=== PATIENT | male | born 1975 | race Hispanic/Latino ===

== ENCOUNTER 2017-10-31 20:37 | Emergency (ER) | payer BC, OTHER ==
--- NOTE | 2017-10-31 21:08 | EDPHYS ---
Physician Documentation [facility] Name: Joel Negron Jr Age: 42 yrs Sex: Male : 1975 Arrival Date: 10/31/2017 Time: 20:38 Bed 16 Private MD: ED Physician Suresh Garces HPI: 10/31 20:52 This 42 yrs old Male presents to ER via Ambulatory with complaints of BROKE jr8 FINGER. 20:52 The patient or guardian reports decreased range of motion, deformity, pain. The jr8 complaints affect the PIP of left ring finger. Context: The problem was sustained at work, resulted from a fall. Onset: The symptoms/episode began/occurred acutely, today. Modifying factors: The symptoms are alleviated by nothing, the symptoms are aggravated by movement. Associated signs and symptoms: The patient has no apparent associated signs or symptoms. Severity of symptoms: At their worst the symptoms were moderate, in the emergency department the symptoms are unchanged. The patient has not experienced similar symptoms in the past. The patient has not recently seen a physician. Historical: - Allergies: 20:43 No Known Allergies; tc3 - Home Meds: 20:43 tramadol 50 mg Oral tab 1 tab as needed [Active]; Nexium 20 mg Oral cpDR 1 cap once tc3 daily [Active]; - PMHx: 20:43 GERD; tc3 - PSHx: 20:43 None; tc3 - Immunization history:: Last tetanus immunization: unknown. - Social history:: Smoking status: Patient uses tobacco products, smokes one pack cigarettes per day. ROS: 20:52 Eyes: Negative for injury, pain, redness, and discharge, ENT: Negative for injury, jr8 pain, and discharge, Neck: Negative for injury, pain, and swelling, Cardiovascular: Negative for chest pain, palpitations, and edema, Respiratory: Negative for shortness of breath, cough, wheezing, and pleuritic chest pain, Abdomen/GI: Negative for abdominal pain, nausea, vomiting, diarrhea, and constipation, Back: Negative for injury and pain, Skin: Negative for injury, rash, and discoloration, Neuro: Negative for headache, weakness, numbness, tingling, and seizure. 20:52 MS/extremity: Positive for decreased range of motion, deformity, pain, of the PIP of left ring finger. Exam: 20:52 Eyes: Pupils equal round and reactive to light, extra-ocular motions intact. Lids and jr8 lashes normal. Conjunctiva and sclera are non-icteric and not injected. Cornea within normal limits. Periorbital areas with no swelling, redness, or edema. ENT: Nares patent. No nasal discharge, no septal abnormalities noted. Tympanic membranes are normal and external auditory canals are clear. Oropharynx with no redness, swelling, or masses, exudates, or evidence of obstruction, uvula midline. Mucous membranes moist. Neck: Trachea midline, no thyromegaly or masses palpated, and no cervical lymphadenopathy. Supple, full range of motion without nuchal rigidity, or vertebral point tenderness. No Meningismus. Cardiovascular: Regular rate and rhythm with a normal S1 and S2. No gallops, murmurs, or rubs. Normal PMI, no JVD. No pulse deficits. Respiratory: Lungs have equal breath sounds bilaterally, clear to auscultation and percussion. No rales, rhonchi or wheezes noted. No increased work of breathing, no retractions or nasal flaring. Abdomen/GI: Soft, non-tender, with normal bowel sounds. No distension or tympany. No guarding or rebound. No evidence of tenderness throughout. Back: No spinal tenderness. No costovertebral tenderness. Full range of motion. Skin: Warm, dry with normal turgor. Normal color with no rashes, no lesions, and no evidence of cellulitis. Neuro: Awake and alert, GCS 15, oriented to person, place, time, and situation. Cranial nerves II-XII grossly intact. Motor strength 5/5 in all extremities. Sensory grossly intact. Cerebellar exam normal. Normal gait. 20:52 Musculoskeletal/extremity: Extremities: grossly normal except: noted in the PIP of left ring finger: decreased ROM, deformity, pain, Circulation is intact in all extremities. Sensation intact. Vital Signs: 20:45 BP 125 / 88; Pulse 78; Resp 20; Temp 98.4(O); Pulse Ox 95% on R/A; Weight 94.35 kg; tc3 Height 5 ft. 5 in. (165.10 cm); Pain 9/10; 20:45 Body Mass Index 34.61 (94.35 kg, 165.10 cm) tc3 Procedures: 20:52 Reduction: of the PIP of left ring finger, using traction, manipulation, Patient jr8 tolerated well. Post reduction film - reveals normal alignment. MDM: 20:48 Patient medically screened. jr8 21:06 Data reviewed: vital signs, nurses notes, radiologic studies, plain films, and as a jr8 result, I will discharge patient. Data interpreted: Pulse oximetry: on room air is 95 %. Interpretation: normal. Counseling: I had a detailed discussion with the patient and/or guardian regarding: the historical points, exam findings, and any diagnostic results supporting the discharge/admit diagnosis, radiology results, the need for outpatient follow up, a orthopedic surgeon, to return to the emergency department if symptoms worsen or persist or if there are any questions or concerns that arise at home. 10/31 20:52 Order name: XRAY Hand LEFT 2 View; Complete Time: 22:18 jr8 10/31 21:06 Order name: Finger Splint; Complete Time: 21:25 jr8 Administered Medications: No medications were administered Disposition: 11/01 00:59 I agree with the assessment and plan of care. tw4 Disposition: 10/31/17 21:08 Discharged to Home. Impression: Dislocation of proximal interphalangeal joint of left ring finger. - Condition is Stable. - Discharge Instructions: Finger Dislocation. - Medication Reconciliation Form, Thank You Letter, Antibiotic Education, Presription Opioid Use form. - Follow up: Dylan Rangel MD; When: 1 week; Reason: Recheck today's complaints, Continuance of care, Re-evaluation by your physician. - Problem is new. - Symptoms have improved. Signatures: Dispatcher [employer] EDMS Kaveh Gregory PA PA jr8 Dee Rose, RN RN tc3 Anival Haro, RN STEPHANI fu Suresh Garces MD MD tw4
--- NOTE | 2017-10-31 21:08 | ER ---
Nurse's Notes [facility] Name: Joel Negron Jr Age: 42 yrs Sex: Male : 1975 Arrival Date: 10/31/2017 Time: 20:38 Bed 16 Private MD: Diagnosis: Dislocation of proximal interphalangeal joint of left ring finger Presentation: 10/31 20:42 Presenting complaint: Patient states: "I fell and broke my finger". Transition of care: tc3 patient was not received from another setting of care. Onset of symptoms was October 31, 2017 at 20:10. Care prior to arrival: None. 20:42 Method Of Arrival: Ambulatory tc3 20:42 Acuity: WILLIE 4 tc3 Triage Assessment: 20:44 General: Appears in no apparent distress. Behavior is calm, cooperative, appropriate tc3 for age. Pain: Complains of pain in left hand Pain currently is 8 out of 10 on a pain scale. Quality of pain is described as throbbing. Musculoskeletal: Bony deformity noted of ring finger left hand Reports pain in left hand. Historical: - Allergies: 20:43 No Known Allergies; tc3 - Home Meds: 20:43 tramadol 50 mg Oral tab 1 tab as needed [Active]; Nexium 20 mg Oral cpDR 1 cap once tc3 daily [Active]; - PMHx: 20:43 GERD; tc3 - PSHx: 20:43 None; tc3 - Immunization history:: Last tetanus immunization: unknown. - Social history:: Smoking status: Patient uses tobacco products, smokes one pack cigarettes per day. Screenin:45 Abuse screen: Denies threats or abuse. Denies injuries from another. Nutritional tc3 screening: No deficits noted. Tuberculosis screening: No symptoms or risk factors identified. Fall Risk None identified. Assessment: 20:40 General: Appears in no apparent distress. Behavior is calm, cooperative, appropriate fu for age, Reports. Pain: Complains of pain in left ring finger and left hand. Neuro: No deficits noted. Respiratory: Breath sounds are clear bilaterally. Vital Signs: 20:45 BP 125 / 88; Pulse 78; Resp 20; Temp 98.4(O); Pulse Ox 95% on R/A; Weight 94.35 kg; tc3 Height 5 ft. 5 in. (165.10 cm); Pain 9/10; 20:45 Body Mass Index 34.61 (94.35 kg, 165.10 cm) tc3 ED Course: 20:38 Patient arrived in ED. al2 20:43 Triage completed. tc3 20:44 Arm band placed on right wrist. tc3 20:48 Kaveh Gregory PA is PHCP. jr8 20:48 Suresh Garces MD is Attending Physician. jr8 21:04 X-ray completed. Portable x-ray completed in exam room. Patient tolerated procedure bb2 well. 21:05 XRAY Hand LEFT 2 View In Process Unspecified. EDMS 21:07 Dylan Rangel MD is Referral Physician. jr8 21:10 Anival Haro, RN is Primary Nurse. fu 21:28 Patient has correct armband on for positive identification. Side rails up X2. fu 21:29 splint to left ring finger applied. fu Administered Medications: No medications were administered Outcome: 21:08 Discharge ordered by . jr8 22:00 Discharged to home patient left without taking his discharge instructions and not fu signing his discharge papers. 22:33 Patient left the ED. fu Signatures: Dispatcher [employer] EDDE Kaveh Gregory PA PA jr8 Dee Rose RN RN 3 Anival Haro, STEPHANI RN Debby Holt bb2 Adali Hernández al2
--- NOTE | 2017-10-31 22:14 | RAD REPORT ---
EXAM DESCRIPTION: RAD - Hand Left 2 View - 10/31/2017 9:05 pm CLINICAL HISTORY: Post reduction fourth digit left hand. COMPARISON: No pre reduction imaging FINDINGS: No fracture is identified. There is soft tissue swelling around the fourth digit PIP joint . This is presumed to be the site of dislocation. No gross fracture deformity seen. No periosteal kayley ction.
== END 2017-10-31 22:33 | disposition home or self-care (01) ==
LOC: ER 20:37
DX: S63.285A Dislocation of proximal interphalangeal joint of left ring finger, initial encounter (principal); W18.30XA Fall on same level, unspecified, initial encounter; Y93.9 Activity, unspecified; Y92.89 Other specified places as the place of occurrence of the external cause; Y99.0 Civilian activity done for income or pay; K21.9 Gastro-esophageal reflux disease without esophagitis; F17.210 Nicotine dependence, cigarettes, uncomplicated
CPT/HCPCS: 99283

== ENCOUNTER 2018-01-08 10:27 | Emergency (ER) | payer OTHER ==
[2018-01-08] MEDS ORDERED: NA CHLORIDE 0.9% 1,000 ML ONE (10:46)
[2018-01-08 11:29] LABS: Absolute Lymphocytes (CBC) 1.5 K/uL (0.7-4.9); Absolute Monocytes 1.1 K/uL (0.1-1.3); Absolute Neutrophil 4.5 K/uL (1.8-8.0); Basophils % 0.4 % (0-1.3); Eosinophils % 2.2 % (0-4.4); Hematocrit 47.6 % (39.6-49.0); Lymphocytes % 20.1 % (15.3-44.8); MCH 30.2 pg (27.0-35.0); MCV 86.6 fL (80-100); MPV 10.1 fL (7.6-11.3); Monocytes % 15.8 % (3.3-12.3)
[2018-01-08 11:41] LABS: Bicarbonate 26 mEq/L (21-31); Glucose Level 129 mg/dL (65-120); Lipase 21 U/L (22-51); Potassium 3.1 mEq/L (3.6-5.0); Sodium Level 136 mEq/L (135-145)
[2018-01-08 11:48] LABS: ALT/SGPT 18 IU/L (10-60); AST/SGOT 20 IU/L (10-42); Albumin 3.7 g/dL (3.2-5.5); Alkaline Phosphatase 63 IU/L (42-121); Amylase Level 42 U/L (28-100); BUN Blood Urea Nitrogen 8 mg/dL (6-20); Bilirubin Direct 0.1 mg/dL (0-0.2); Bilirubin Total 1.1 mg/dL (0.3-1.2); Protein, Total 6.9 g/dL (6.0-8.3)
[2018-01-08] MEDS ORDERED: POTASSIUM CL SA 10 MEQ TAB PO ONE (11:54)
--- NOTE | 2018-01-08 12:14 | ER ---
Nurse's Notes [facility] Name: Joel Negron Jr Age: 42 yrs Sex: Male : 1975 Arrival Date: 01/08/2018 Time: 10:31 Bed 13 Private MD: Palak Brown H Diagnosis: Diarrhea, unspecified Presentation: 01/08 10:34 Presenting complaint: Patient states: "I think I am dehydrated. I was getting over lk1 heated at work.". Transition of care: patient was not received from another setting of care. Onset of symptoms was January 05, 2018. Risk Assessment: Do you want to hurt yourself or someone else? Patient reports no desire to harm self or others. Initial Sepsis Screen: Does the patient meet any 2 criteria? No. Patient's initial sepsis screen is negative. Does the patient have a suspected source of infection? No. Patient's initial sepsis screen is negative. Care prior to arrival: None. 10:34 Method Of Arrival: Ambulatory lk1 10:34 Acuity: WILLIE 3 lk1 10:35 Note "I am very thirsty and everything is going through me. I have some kind of stomach lk1 cold and I have to go back to work tomorrow, but I am not feeling better.". Triage Assessment: 10:37 General: Appears in no apparent distress. Behavior is calm, cooperative, appropriate lk1 for age. Pain: Complains of pain in abdomen Pain currently is 4 out of 10 on a pain scale. GI: Reports diarrhea, Patient currently denies nausea, vomiting. Historical: - Allergies: 10:36 No Known Allergies; lk1 - PMHx: 10:36 GERD; lk1 10:37 hepatitis c; lk1 - PSHx: 10:36 None; lk1 - Immunization history:: Adult Immunizations up to date. - Social history:: Smoking status: Patient uses tobacco products, smokes one-half pack cigarettes per day. Screenin:32 Abuse screen: Denies threats or abuse. Denies injuries from another. Nutritional jl7 screening: No deficits noted. Tuberculosis screening: No symptoms or risk factors identified. Fall Risk IV access (20 points). Total Leigh Fall Scale indicates No Risk (0-24 pts). Assessment: 11:00 General: Appears in no apparent distress. uncomfortable, Behavior is calm, cooperative, jl7 appropriate for age. Pain: Denies pain. Neuro: Level of Consciousness is awake, alert, obeys commands, Oriented to person, place, time, situation. Cardiovascular: Patient's skin is warm and dry. Respiratory: Airway is patent Respiratory effort is even, unlabored, Respiratory pattern is regular, symmetrical. GI: Abdomen is round non-distended, Bowel sounds present X 4 quads. Abd is soft and non tender X 4 quads. : No signs and/or symptoms were reported regarding the genitourinary system. EENT: No signs and/or symptoms were reported regarding the EENT system. Derm: Skin is pink, warm \\T\\ dry. Vital Signs: 10:37 BP 128 / 92; Pulse 84; Resp 12; Temp 97.5; Pulse Ox 97% on R/A; Weight 92.99 kg (R); lk1 Height 5 ft. 5 in. (165.10 cm) (R); Pain 4/10; 11:32 BP 123 / 88; Pulse 80; Resp 16; Pulse Ox 98% ; jl7 10:37 Body Mass Index 34.11 (92.99 kg, 165.10 cm) lk1 ED Course: 10:31 Patient arrived in ED. mr 10:31 Palak Brown DO is Private Physician. mr 10:35 Triage completed. lk1 10:37 [facility] Brun[facility]C [facility]. kb 10:37 Ernst Piemntel MD is Attending Physician. kb 10:39 Arm band placed on left wrist. lk1 10:41 Vane Sol RN is Primary Nurse. jl7 11:20 Initial lab(s) drawn, by co, sent to lab. Inserted saline lock: 22 gauge in right hand, jl7 using aseptic technique. Blood collected. 11:32 Patient has correct armband on for positive identification. Bed in low position. Call jl7 light in reach. Side rails up X 1. Pulse ox on. NIBP on. Warm blanket given. 12:25 No provider procedures requiring assistance completed. IV discontinued, intact, jl7 bleeding controlled, No redness/swelling at site. Pressure dressing applied. Administered Medications: 11:10 Drug: NS 0.9% 1000 ml Route: IV; Rate: 1000 ml; Site: right hand; jl7 12:26 Follow up: IV Status: Completed infusion 7 11:58 Drug: Potassium Chloride 40 mEq Route: PO; 7 12: Follow up: Response: No adverse reaction 7 Outcome: 12:13 Discharge ordered by . hitesh 12:25 Discharged to home ambulatory. 7 12: Condition: stable 12:25 Discharge instructions given to patient, Instructed on discharge instructions, follow up and referral plans. medication usage, Demonstrated understanding of instructions, follow-up care, medications, Prescriptions given X 1. 12:26 Patient left the ED. jl7 Signatures: Elizabeth Brunner, TOWER CLEANER-C TOWER CLEANER-Christin Dawson mr Geeta Armas, RN RN lk1 Vane Sol RN RN jl7
--- NOTE | 2018-01-08 12:14 | EDPHYS ---
Physician Documentation [facility] Name: Joel Negron Jr Age: 42 yrs Sex: Male : 1975 Arrival Date: 01/08/2018 Time: 10:31 Bed 13 Private MD: Palak Brown H ED Physician Ernst Pimentel HPI: 01/08 10:53 This 42 yrs old Male presents to ER via Ambulatory with complaints of Diarrhea.kb 12:11 The patient presents to the emergency department with diarrhea. Onset: The kb symptoms/episode began/occurred 3 day(s) ago. Possible causes: unknown. The symptoms are aggravated by nothing. The symptoms are alleviated by nothing. Associated signs and symptoms: Pertinent positives: diarrhea, Pertinent negatives: abdominal pain, anorexia, belching, constipation, dysuria, fever, flatulence, GI bleeding, hematuria, nausea, vomiting. Severity of symptoms: At their worst the symptoms were mild moderate in the emergency department the symptoms are unchanged. The patient has not experienced similar symptoms in the past. The patient has not recently seen a physician. Pt states he thinks he got overheated at work on Monday and started having diarrhea that night. Came in today because he has had diarrhea all weekend and wants to get checked for dehydration. Historical: - Allergies: 10:36 No Known Allergies; lk1 - PMHx: 10:36 GERD; lk1 10:37 hepatitis c; lk1 - PSHx: 10:36 None; lk1 - Immunization history:: Adult Immunizations up to date. - Social history:: Smoking status: Patient uses tobacco products, smokes one-half pack cigarettes per day. ROS: 12:11 Constitutional: Negative for fever, chills, and weight loss, Cardiovascular: Negative kb for chest pain, palpitations, and edema, Respiratory: Negative for shortness of breath, cough, wheezing, and pleuritic chest pain, Back: Negative for injury and pain, : Negative for injury, bleeding, discharge, and swelling, MS/Extremity: Negative for injury and deformity, Skin: Negative for injury, rash, and discoloration, Neuro: Negative for headache, weakness, numbness, tingling, and seizure. 12:11 Abdomen/GI: Positive for diarrhea, Negative for abdominal pain, nausea, vomiting, constipation, abdominal cramps, abdominal distension, anorexia. Exam: 12:11 Constitutional: This is a well developed, well nourished patient who is awake, alert, kb and in no acute distress. Head/Face: Normocephalic, atraumatic. ENT: Nares patent. No nasal discharge, no septal abnormalities noted. Tympanic membranes are normal and external auditory canals are clear. Oropharynx with no redness, swelling, or masses, exudates, or evidence of obstruction, uvula midline. Mucous membranes moist. Neck: Trachea midline, no thyromegaly or masses palpated, and no cervical lymphadenopathy. Supple, full range of motion without nuchal rigidity, or vertebral point tenderness. No Meningismus. Chest/axilla: Normal chest wall appearance and motion. Nontender with no deformity. No lesions are appreciated. Cardiovascular: Regular rate and rhythm with a normal S1 and S2. No gallops, murmurs, or rubs. Normal PMI, no JVD. No pulse deficits. Respiratory: Lungs have equal breath sounds bilaterally, clear to auscultation and percussion. No rales, rhonchi or wheezes noted. No increased work of breathing, no retractions or nasal flaring. Abdomen/GI: Soft, non-tender, with normal bowel sounds. No distension or tympany. No guarding or rebound. No evidence of tenderness throughout. Back: No spinal tenderness. No costovertebral tenderness. Full range of motion. Skin: Warm, dry with normal turgor. Normal color with no rashes, no lesions, and no evidence of cellulitis. MS/ Extremity: Pulses equal, no cyanosis. Neurovascular intact. Full, normal range of motion. Neuro: Awake and alert, GCS 15, oriented to person, place, time, and situation. Cranial nerves II-XII grossly intact. Motor strength 5/5 in all extremities. Sensory grossly intact. Cerebellar exam normal. Normal gait. Vital Signs: 10:37 BP 128 / 92; Pulse 84; Resp 12; Temp 97.5; Pulse Ox 97% on R/A; Weight 92.99 kg (R); lk1 Height 5 ft. 5 in. (165.10 cm) (R); Pain 4/10; 11:32 BP 123 / 88; Pulse 80; Resp 16; Pulse Ox 98% ; jl7 10:37 Body Mass Index 34.11 (92.99 kg, 165.10 cm) lk1 MDM: 10:39 Patient medically screened. kb 12:10 Data reviewed: vital signs, nurses notes. Data interpreted: Pulse oximetry: on room air kb is 98 %. Interpretation: normal. Counseling: I had a detailed discussion with the patient and/or guardian regarding: the historical points, exam findings, and any diagnostic results supporting the discharge/admit diagnosis, lab results, the need for outpatient follow up, a family practitioner, to return to the emergency department if symptoms worsen or persist or if there are any questions or concerns that arise at home. 01/08 10:44 Order name: Amylase, Serum; Complete Time: 11:49 kb 01/08 10:44 Order name: Basic Metabolic Panel; Complete Time: 11:49 kb 01/08 10:44 Order name: CBC with Diff; Complete Time: 11:31 kb 01/08 10:44 Order name: Hepatic Function; Complete Time: 11:49 kb 01/08 10:44 Order name: Lipase; Complete Time: 11:49 kb 01/08 11:59 Order name: Urine Dipstick--Ancillary (enter results) bd 01/08 10:44 Order name: IV Saline Lock; Complete Time: 11:11 kb 01/08 10:44 Order name: Labs collected and sent; Complete Time: 11:11 kb 01/08 10:44 Order name: Urine Dipstick-Ancillary (obtain specimen); Complete Time: 11:58 kb Administered Medications: 11:10 Drug: NS 0.9% 1000 ml Route: IV; Rate: 1000 ml; Site: right hand; [facility] 12:26 Follow up: IV Status: Completed infusion jl7 11:58 Drug: Potassium Chloride 40 mEq Route: PO; jl7 12:26 Follow up: Response: No adverse reaction jl7 Disposition: 14:34 Co-signature as Attending Physician, Ernst Pimentel MD. rn Disposition: 01/08/18 12:13 Discharged to Home. Impression: Diarrhea, unspecified. - Condition is Stable. - Discharge Instructions: Food Choices to Help Relieve Diarrhea, Adult, Diarrhea, [id number]. - Prescriptions for Bentyl 20 mg Oral Tablet - take 1 tablet by ORAL route every 6 hours As needed; 20 tablet. - Medication Reconciliation Form, Thank You Letter, Antibiotic Education, Prescription Opioid Use form. - Work release form (01/08/18 12:30). kb - Follow up: Emergency Department; When: As needed; Reason: Worsening of condition. Follow up: Private Physician; When: 2 - 3 days; Reason: Recheck today's complaints, Continuance of care, Re-evaluation by your physician. Signatures: Dispatcher [employer] EDMS KannanElizabeth, CHRIS-C FIELD COURT RESEARCHER-Ckb Ernst Pimentel MD MD rn Kluge, Leah RN RN lk1 Vane Sol RN RN jl7 Corrections: (The following items were deleted from the chart) 12:26 12:13 01/08/2018 12:13 Discharged to Home. Impression: Diarrhea, unspecified. Condition jl7 is Stable. Forms are Medication Reconciliation Form, Thank You Letter, Antibiotic Education, Prescription Opioid Use. Follow up: Emergency Department; When: As needed; Reason: Worsening of condition. Follow up: Private Physician; When: 2 - 3 days; Reason: Recheck today's complaints, Continuance of care, Re-evaluation by your physician. kb
[2018-01-08 13:11] LABS: Urine Blood TRACE (NEG); Urine Glucose NEGATIVE (NEG); Urine Protein NEGATIVE (NEG)
== END 2018-01-08 12:26 | disposition home or self-care (01) ==
LOC: ER 10:27
DX: R19.7 Diarrhea, unspecified (principal); F17.210 Nicotine dependence, cigarettes, uncomplicated
CPT/HCPCS: 36415; 80048; 80076; 81003; 82150; 83690; 85025; 96360; 99284; J7030